=== PATIENT | female | born 1950 | race Caucasian/White ===

== ENCOUNTER 2017-07-23 14:35 | Inpatient (IN) | payer MEDICARE, BC, OTHER ==
[~2017-07-23] VITALS: Ht 160 cm; Wt 83.3 kg
[~2017-07-23 14:35] MED LIST: AKWA TEARS 15 M15 ML OP; AMBIEN 10MG10 MG PO; AMITRIPTYLINE H25 M1 PO; ASPIRIN E.C. 8181 MG PO; ATIVAN1 MG PO; B-12 500 MCG PO; B-12500 MCG PO; BAYER BACK AND BODY; CALCIUM + D 6001 TA1 PO; CELEXA 20MG20 MG/TAB PO; CIMETIDINE400 MG PO; CLONAZEPAM0.5 MG PO; COLACE 100100 MG/CAP PO; CRANBERRY450 MG PO; CYMBALTA 30MG30 MG PO; CYMBALTA 60MG60 MG PO; FLECAINIDE ACE100 MG PO; FLEXERIL 1010 MG/TAB PO; GLUCOSE4 G1 PO; IRON325 M1 PO; LASIX 20MG TABL20 MG PO; LASIX 40MG TABL40 MG PO; LEVOTHYROXIN0.125 MG PO; LEXAPRO 10MG10 MG PO; LORTAB 5/500 501 TAB PO; LOVENOX SQ; LUNESTA2 MG PO; LUNESTA3 MG PO; MULTI VITAMINS1 TAB PO; NEXIUM 40MG40 MG PO; NORCO 325 MG-51 TAB PO; PRILOSEC 20MG20 MG PO; PRISTIQ50 M1 PO; REMERON30 MG PO; REMERON45 MG PO; ROBAXIN 75750 MG/TAB PO; SYNTHROID0.125 MG/T PO; TAGAMET400 MG PO; TEARS OP; TOPROL XL 25MG25 MG; TOPROL XL 50MG50 MG PO; TUMS500 MG PO; TYLENOL 500MG500 MG PO; ULTRAM 50MG TAB50 MG PO; VERAPAMIL HCL120 MG PO; VIACTIV CALCIUM1 CTB PO; VITAMIN C500 MG PO; WARFARIN SOD5 MG PO; XANAX 0.5MG0.5 MG PO; XANAX 1MG1 MG PO; XARELTO20 MG PO; [UNRECOGNIZED DRUG - OTHER] PO
[2017-07-23] MEDS ORDERED: PRIL40 PO (14:54)
[2017-07-23 17:37] VITALS: BP 105/53; PULSE 76; TEMP 98.4
[2017-07-23 17:43] LABS: PROTHROMBIN TIME 11.4 SECONDS (9.7-12.8)
[2017-07-23 17:59] LABS: MEAN CELL VOLUME 105 fl (80.0-100.0); MEAN CORPUSCULAR HGB CONC 33 g/dl (33.0-37.0); MEAN PLATELET VOLUME 10.7 fl (7.4-10.4); PLATELET COUNT 331 K/mm3 (130-400); RED BLOOD COUNT 3.06 M/mm3 (4.10-5.30); WHITE BLOOD COUNT 9.9 K/mm3 (4.8-10.8)
[2017-07-23 18:05] LABS: ADJUSTED CALCIUM 9.3 mg/dL (8.4-10.2); ALBUMIN 3.3 gm/dL (3.5-5.0); BILIRUBIN,TOTAL 0.4 mg/dL (0.0-1.0); CALCIUM 8.7 mg/dL (8.4-10.2); CREATININE, serum 0.69 mg/dL (0.52-1.25); POTASSIUM 3.9 mmol/L (3.4-5.0); TOTAL PROTEIN 6.6 gm/dL (6.4-8.2)
[2017-07-23 18:06] LABS: HEMATOCRIT 32.2 % (37.0-47.0); HEMOGLOBIN 10.5 g/dl (12.5-16.0); MEAN CORPUSCULAR HEMOGLOBIN 34 pg (27.0-31.0)
[2017-07-23 21:20] LABS: PH 5 (5-8); URINE APPEARANCE Cloudy; URINE BACTERIA Rare /hpf; URINE BILIRUBIN Negative (NEGATIVE); URINE BLOOD Negative (NEGATIVE); URINE COLOR Yellow; URINE GLUCOSE Negative (NEGATIVE); URINE KETONE Negative (NEGATIVE); URINE UROBILINOGEN Negative (NEGATIVE)
[2017-07-23 22:27] VITALS: BP 113/63; PULSE 78; TEMP 97.8
[2017-07-24] VITALS (13 sets, daily range): BP systolic 94–148; BP diastolic 49–81; PULSE 73–85; TEMP 98.1–99
[2017-07-25 01:53] VITALS: BP 101/48; PULSE 85; TEMP 98.7
[2017-07-25 06:02] VITALS: BP 126/65; PULSE 80; TEMP 99.4
[2017-07-25 10:52] VITALS: BP 124/62; PULSE 87; TEMP 98.4
[2017-07-25 13:59] VITALS: BP 135/63; PULSE 89; TEMP 98.3
[2017-07-25 17:45] VITALS: BP 115/53; PULSE 87; TEMP 98.9
[2017-07-25 21:43] VITALS: BP 120/78; PULSE 106; TEMP 99.2
[2017-07-26 02:21] VITALS: BP 125/80; PULSE 87; TEMP 98.9
[2017-07-26 05:33] VITALS: BP 135/87; PULSE 85; TEMP 99
[2017-07-26 10:33] VITALS: BP 103/65; PULSE 97; TEMP 98.5
[2017-07-26 13:57] VITALS: BP 116/85; PULSE 101; TEMP 97.9
[2017-07-26 18:33] VITALS: BP 115/66; PULSE 108; TEMP 100.1
[2017-07-26 22:05] VITALS: BP 108/64; PULSE 99; TEMP 98.5
[2017-07-27 02:12] VITALS: BP 105/66; PULSE 81; TEMP 97.5
[2017-07-27 05:13] VITALS: BP 118/75; PULSE 70; TEMP 97.5
[2017-07-27] MEDS ORDERED: NORCO 325 MG-7.1 TAB PO (08:45)
[2017-07-27 11:21] VITALS: BP 103/68; PULSE 85; TEMP 97.6
== END 2017-07-27 13:15 | disposition home or self-care (01) | DRG 482 ==
LOC: COL.ER 14:35 → SURG 15:48
PROVIDERS: Emergency Medicine; Orthopaedic Surgery
PROC: 0QH634Z Insertion of Internal Fixation Device into Right Upper Femur, Percutaneous Approach (ICD-10-PCS; principal; 2017-07-24 08:00)
DX: M84.351A Stress fracture, right femur, initial encounter for fracture (principal); Z87.891 Personal history of nicotine dependence
CPT/HCPCS: OP; C1713; C1776; J0690; J2250; J2270; J2405; J2704; J2765; J3010; J7030; J7120

== ENCOUNTER 2017-12-28 12:09 | Emergency (ER) | payer MEDICARE, BC, OTHER ==
[~2017-12-28] VITALS: Ht 160 cm; Wt 83.2 kg
[~2017-12-28 12:09] MED LIST changes: +NORCO 325 MG-7.1 TAB PO; +PRIL40 PO
[2017-12-28 12:22] VITALS: BP 172/97; TEMP 98.1
[2017-12-28 14:42] VITALS: PULSE 71
== END 2017-12-28 14:43 | disposition home or self-care (01) ==
LOC: COL.ER 12:09
DX: S46.912A Strain of unspecified muscle, fascia and tendon at shoulder and upper arm level, left arm, initial encounter (principal); S46.911A Strain of unspecified muscle, fascia and tendon at shoulder and upper arm level, right arm, initial encounter; I10 Essential (primary) hypertension; I25.10 Atherosclerotic heart disease of native coronary artery without angina pectoris; Z79.82 Long term (current) use of aspirin; W18.39XA Other fall on same level, initial encounter

== ENCOUNTER 2018-02-01 10:01 | Emergency (ER) | payer MEDICARE, BC, OTHER ==
[~2018-02-01] VITALS: Ht 160 cm; Wt 84.5 kg
[2018-02-01 10:16] VITALS: BP 131/85; TEMP 98.1
[2018-02-01] MEDS ORDERED: NEURONTIN300 MG/CAP PO (11:36)
[2018-02-01] MEDS ORDERED: EFFEXOR-XR150 MG PO (11:37)
[2018-02-01] MEDS ORDERED: NORCO 325 MG-51 TAB PO (13:04)
[2018-02-01 13:13] VITALS: PULSE 73
[2018-02-01] MEDS ORDERED: FLEXERIL 1010 MG/TAB PO (13:22)
== END 2018-02-01 13:14 | disposition home or self-care (01) ==
LOC: COL.ER 10:01
DX: S32.020A Wedge compression fracture of second lumbar vertebra, initial encounter for closed fracture (principal); X58.XXXA Exposure to other specified factors, initial encounter
CPT/HCPCS: J2270; J2550

== ENCOUNTER → 2018-04-19 | Outpatient (CLI) | payer MEDICARE, BC, OTHER ==
[~2018-04-19] MED LIST changes: +AMITRIPTYLINE H50 M1 PO; +EFFEXOR-XR150 MG PO; +NEURONTIN300 MG/CAP PO; +RESTASIS 60VL OP
== END ==
LOC: MHCPAIN 14:28
DX: G89.29 Other chronic pain (principal); M47.817 Spondylosis without myelopathy or radiculopathy, lumbosacral region; M54.16 Radiculopathy, lumbar region; M53.3 Sacrococcygeal disorders, not elsewhere classified
CPT/HCPCS: G0463

== ENCOUNTER → 2018-05-05 | Outpatient (CLI) | payer MEDICARE, BC, OTHER | LOC: MHCPAIN 11:51 | DX: M47.817 Spondylosis without myelopathy or radiculopathy, lumbosacral region (principal); M46.96 Unspecified inflammatory spondylopathy, lumbar region | CPT/HCPCS: J1040; Q9967 ==

== ENCOUNTER → 2018-06-03 | Outpatient (CLI) | payer MEDICARE, BC, OTHER | LOC: MHCPAIN 09:54 | DX: G89.29 Other chronic pain (principal); M47.817 Spondylosis without myelopathy or radiculopathy, lumbosacral region; M54.16 Radiculopathy, lumbar region; M53.3 Sacrococcygeal disorders, not elsewhere classified | CPT/HCPCS: G0463 ==

== ENCOUNTER 2019-07-22 12:10 | Emergency (ER) | payer MEDICARE, BC, OTHER ==
[~2019-07-22] VITALS: Ht 157.5 cm; Wt 80.0 kg
[2019-07-22 12:20] VITALS: TEMP 97.2
[2019-07-22 13:34] LABS: BASO # 0.1 (0.0-0.2); BASO % 0.8 % (0.0-2.0); EOS # 0.3 (0.0-0.7); EOS % 2.8 % (0-4.0); GRAN # 6.3 (1.4-6.5); GRAN % 56.4 % (42.2-75.2); HEMOGLOBIN 11.9 g/dl (12.5-16.0); LYMPH # 3.4 (1.2-3.4); LYMPH % 30.7 % (20.0-51.0); MEAN CELL VOLUME 103 fl (80.0-100.0); MEAN CORPUSCULAR HEMOGLOBIN 34 pg (27.0-31.0); MEAN CORPUSCULAR HGB CONC 33 g/dl (33.0-37.0); MEAN PLATELET VOLUME 9.7 fl (7.4-10.4); MONO % 8.9 % (1.7-9.3); PLATELET COUNT 391 K/mm3 (130-400); RED BLOOD COUNT 3.49 M/mm3 (4.10-5.30); REDCELL DISTRIBUTION WIDTH-CV 14.9 % (11.5-14.5)
[2019-07-22 13:39] LABS: INR 1.2 (0.8-3.0); PROTHROMBIN TIME 13.8 SECONDS (9.7-12.8)
[2019-07-22 14:57] VITALS: BP 132/73; PULSE 64
== END 2019-07-22 15:14 | disposition home or self-care (01) ==
LOC: COL.ER 12:10
PROVIDERS: Physician Assistant
DX: S09.90XA Unspecified injury of head, initial encounter (principal); S02.2XXA Fracture of nasal bones, initial encounter for closed fracture; S90.121A Contusion of right lesser toe(s) without damage to nail, initial encounter; R40.2412 Glasgow coma scale score 13-15, at arrival to emergency department; Z86.73 Personal history of transient ischemic attack (TIA), and cerebral infarction without residual deficits; Z90.49 Acquired absence of other specified parts of digestive tract; Z90.89 Acquired absence of other organs; Z98.84 Bariatric surgery status; Z79.01 Long term (current) use of anticoagulants; W01.198A Fall on same level from slipping, tripping and stumbling with subsequent striking against other object, initial encounter; Y92.009 Unspecified place in unspecified non-institutional (private) residence as the place of occurrence of the external cause
CPT/HCPCS: J2405; J7030

== ENCOUNTER 2019-09-22 16:37 | Emergency (ER) | payer MEDICARE, BC, OTHER ==
[~2019-09-22] VITALS: Ht 149.9 cm; Wt 80.0 kg
[2019-09-22 16:40] VITALS: TEMP 97.7
[2019-09-22] MEDS ORDERED: NORCO 325 MG-51 TAB PO (18:24)
[2019-09-22] MEDS ORDERED: LIDODERM 5% PATC1 EA TP (18:24)
[2019-09-22 19:48] VITALS: BP 118/57; PULSE 67
== END 2019-09-22 19:48 | disposition home or self-care (01) ==
LOC: COL.ER 16:37
DX: M54.6 Pain in thoracic spine (principal); Z79.01 Long term (current) use of anticoagulants; Z86.73 Personal history of transient ischemic attack (TIA), and cerebral infarction without residual deficits
CPT/HCPCS: J1170; J1885

== ENCOUNTER → 2019-10-27 | Outpatient (CLI) | payer MEDICARE, BC, OTHER ==
--- NOTE | 2019-10-24 08:18 | NUR ---
LMOM WITH INSTRUCTIONS AND CALL BACK NUMBER
[~2019-10-27] VITALS: Ht 149.9 cm; Wt 79.0 kg
[~2019-10-27] MED LIST changes: +AZULFIDINE500 MG/TAB PO; +ELIQUIS 5MG PO; +LIDODERM 5% PATC1 EA TP; +TOPROL XL 25MG25 MG PO
[2019-10-27 08:50] VITALS: BP 130/98; PULSE 114
[2019-10-27 10:00] VITALS: BP 116/80; PULSE 107
[2019-10-27 10:15] VITALS: BP 112/88; PULSE 106
== END ==
LOC: COL.RAD 08:15
DX: M43.8X4 Other specified deforming dorsopathies, thoracic region (principal); M84.48XA Pathological fracture, other site, initial encounter for fracture
CPT/HCPCS: J2704; J3010

== ENCOUNTER 2020-05-31 09:10 | Inpatient (IN) | payer MEDICARE, BC, OTHER ==
[~2020-05-31] VITALS: Ht 180.3 cm; Wt 77.8 kg
[2020-05-31 10:41] LABS: BASO # 0.1 (0.0-0.2); BASO % 0.8 % (0.0-2.0); EOS # 0.2 (0.0-0.7); EOS % 2.2 % (0-4.0); GRAN # 5.9 (1.4-6.5); GRAN % 57.5 % (42.2-75.2); HEMATOCRIT 34.1 % (37.0-47.0); HEMOGLOBIN 11.3 g/dl (12.5-16.0); LYMPH # 3.2 (1.2-3.4); LYMPH % 30.6 % (20.0-51.0); MEAN CELL VOLUME 102 fl (80.0-100.0); MEAN CORPUSCULAR HEMOGLOBIN 34 pg (27.0-31.0); MEAN CORPUSCULAR HGB CONC 33 g/dl (33.0-37.0); MEAN PLATELET VOLUME 9.5 fl (7.4-10.4); MONO # 0.9 (0.1-0.6); MONO % 8.6 % (1.7-9.3); PLATELET COUNT 344 K/mm3 (130-400); RED BLOOD COUNT 3.33 M/mm3 (4.10-5.30)
[2020-05-31 10:50] LABS: ALBUMIN 3.8 gm/dL (3.5-5.0); BILIRUBIN,TOTAL 0.5 mg/dL (0.0-1.0); CALCIUM 9.3 mg/dL (8.4-10.2); CREATININE, serum 0.66 (0.52-1.25); POTASSIUM 4.9 mmol/L (3.4-5.0); TOTAL PROTEIN 7.5 gm/dL (6.4-8.2)
[2020-05-31] MEDS ORDERED: ELAVIL100 MG PO (10:53)
[2020-05-31] MEDS ORDERED: ZEGERID 40 MG-11 CAP PO (10:54)
[2020-05-31] MEDS ORDERED: CYMBALTA 60MG60 MG PO (10:57)
[2020-05-31] MEDS ORDERED: B-121000 MCG PO (10:57)
[2020-05-31] MEDS ORDERED: VITAMIN D31000 I1 PO (10:58)
--- NOTE | 2020-05-31 11:33 | NUR ---
First visit from the water chemist. No needs right now.
[2020-05-31 11:40] VITALS: BP 145/88; PULSE 80; TEMP 98.6
[2020-05-31] MEDS ORDERED: LIQUIFILM TEARS15 ML OU (11:47)
--- NOTE | 2020-05-31 11:49 | NUR ---
placed pts home meds in med bin in med room and notified pharmacy of their location and to come pick them up
[2020-05-31 11:50] VITALS: BP 145/68; PULSE 80; TEMP 98.6
--- NOTE | 2020-05-31 14:49 | NUR ---
Pt found in room 351 earlier calling patient relations coordinator light to complain about the food given to her for lunch. Upon realizing pt was in wrong room, escorted her back to room 353 where her meal tray was waiting for her. Pt was embarrassed, reassured her it was not a big deal, pt in room 351 was in dialysis at the time so they were not around. Pt resting in bed, denies needs, will continue to monitor.
[2020-05-31 16:36] VITALS: BP 145/73; PULSE 80; TEMP 98.5
[2020-05-31 20:00] VITALS: BP 101/52; PULSE 72; TEMP 97.4
--- NOTE | 2020-05-31 20:15 | NUR ---
At time of assessment, patient is awake in bed. She is alert and oriented and forgetful at times with no complaints of pain. Her legs are obese but do not appear edematous. Heart sounds are normal/regular, lungs are clear with fine crackles in bilateral bases. Patient ambulates independently in her room and states she has vomited up some of her dinner. She states this is a common occurrence when she eats too much, which started after her gastric bypass surgery. Will continue to monitor.
[2020-06-01] VITALS: BP 105/61; PULSE 69; TEMP 97.8
[2020-06-01 03:22] VITALS: BP 122/72; PULSE 69; TEMP 97.5
--- NOTE | 2020-06-01 06:25 | NUR ---
Patient has had a restful night and has been on her home CPAP throughout the night. She complained of pain 6/10 this morning in her ribs and 50 mg Ultram was administered for this. No new concerns.
[2020-06-01 06:34] LABS: PROTHROMBIN TIME 11.6 SECONDS (9.7-12.8)
[2020-06-01 07:38] VITALS: BP 112/50; PULSE 67; TEMP 98.2
--- NOTE | 2020-06-01 09:00 | NUR ---
Patient sitting up in bed watching TV. Rating pain 12/01. VSS. IV CDI. HR NSR telemetry on chest. No further needs expressed from patient. Patient wants to take a shower, nursing staff assisting patient. Call light within reach
--- NOTE | 2020-06-01 11:06 | NUR ---
Plan: To return home with her son and his family in [facility]. Son is Yuriy Fregoso . Assessment: SW met with patient about DC plan. Patient reports that she resides with her son and his family. Patient reports that she has a CPAP and uses it nightly. Patient reports that she has a heart monitor and walker. Patient reports that her PCP is Dr. Allen with upcoming appointment on June 13. Patient reports that she uses [facility]. Patient reports that she has a DPOA but needs to change it and does not want the one she has on record. Denies the need or use of home health. Action: SW educated patient on services available in the community. No additional needs identified.
[2020-06-01 11:20] VITALS: BP 114/63; PULSE 61; TEMP 98.3
[2020-06-01 15:18] VITALS: BP 115/61; PULSE 73; TEMP 98.3
--- NOTE | 2020-06-01 17:33 | NUR ---
Patient has had an uneventful day. VSS. Telemetry on chest. IV CDI. Has been walking the hallway with quad cane, getting lost, but nursing staff assisting patient back to room. No further needs expressed from patient. Call light within reach
[2020-06-01 19:37] VITALS: BP 112/72; PULSE 72; TEMP 98.1
--- NOTE | 2020-06-01 20:00 | NUR ---
At time of assessment, patient is sitting in bed watching TV. She is alert and oriented, heart sounds normal/regular, lung sounds clear, no edema. She complains of mild pain in her ribs. Will continue to monitor.
[2020-06-02] VITALS (7 sets, daily range): BP systolic 96–144; BP diastolic 46–91; PULSE 59–71; TEMP 97.5–98.2
[2020-06-02 07:34] LABS: PROTHROMBIN TIME 11.1 SECONDS (9.7-12.8)
--- NOTE | 2020-06-02 08:15 | NUR ---
Patient laying in bed. A&Ox3. Denies pain and discomfort. VSS. IV CDI. No further needs expressed from patient. Nurse reminded patient to wear a mask when walking the hallway and that she is in 353. Call light within reach
--- NOTE | 2020-06-02 17:42 | NUR ---
Patient resting in bed. Has been walking the hallway independently and tolerating well. VSS. Telemetry on chest. IV CDI. Patient is hoping to go home tomorrow. No further needs expressed from patient. Call light within reach
[2020-06-03] VITALS (9 sets, daily range): BP systolic 84–901; BP diastolic 45–87; PULSE 60–72; TEMP 97.3–98
--- NOTE | 2020-06-03 00:47 | NUR ---
Patient ambulated the halls at the beginning of the shift. Gait noted to be uneven, but steady. INT noted to left hand. Flushes with ease. Noted to be forgetful at times, but is easily reoriented when this happens. Continues to be in normal sinus on telemetry. Patient wears CPAP at night. Denies any further needs. Will continue to monitor.
--- NOTE | 2020-06-03 08:00 | NUR ---
BROUGHT IN ORANGE JUICE PER PT REQUEST, PT PLEASANT, AOX4, ASSESSMENT PERFORMED, MEDICATIONS GIVEN. NO OTHER NEEDS AT THIS TIME. BED IN LOW POSITION, CALL LIGHT WITHIN REACH.
--- NOTE | 2020-06-03 08:40 | NUR ---
PT WALKING IN [place]A REQUESTING TRAMADOL FOR BACK PAIN. PT THEN BEGAN STUMBLING IN THE [place]QU[place], ESCORTED BACK TO BED. PLACED ON HIGH FALL RISK, PT REPORTED DIZZINESS. BP TAKEN AND PT BP SYSTOLIC IN THE 80'S/90'S. CHELO LAINEZ AND DR. PATEL NOTIFIED. FLUID BOLUS ORDERED, FLUIDS HOOKED UP AND BOLUS GIVEN, TAKING VITALS Q5MIN. PT INSTRUCTED TO USE CALL LIGHT WHEN NEEDING TO GET UP AND BED ALARM SET. WILL CONTINUE TO MONITOR.
--- NOTE | 2020-06-03 14:00 | NUR ---
aydin Gardner, CHELO to see about amiodarone administration. she consulted with Malik and it was decided that the amio dose would be given. bp rechecked before administration and it was 107/76. no other needs at this time.
[2020-06-03 14:28] LABS: PROTHROMBIN TIME 11.2 SECONDS (9.7-12.8)
--- NOTE | 2020-06-03 17:14 | NUR ---
pt bp back to baseline that it was at in morning before hypotensive episode. pt complained of back pain and recieved one tramadol. has not asked for another since. pt been sleeping for most of shift, reported being very tired. cardiology approved 1400 dose of amiodarone. no other needs at this time.
--- NOTE | 2020-06-03 19:30 | NUR ---
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 Assessment complete. VS stable-still hypotensive at 92/55-holding metoprolol. A&Ox3-confused conversation. Very tearful stating she is depressed and doesnt want to be away from her family any more and is ready to go home. Plan of care discussed for HS meds/monitoring BP. Discussed need for adjustments to new meds on occasion-verbalizes understanding but still upset she couldnt go home. Denies pain/shortness of breath/nausea. States she is ready to go to bed and requesting HS meds. Denies current needs. Call light inr each. Will monitor.
[2020-06-04 00:03] VITALS: BP 127/72; PULSE 62; TEMP 98
[2020-06-04 04:05] VITALS: BP 116/63; PULSE 69; TEMP 97.5
--- NOTE | 2020-06-04 07:15 | NUR ---
CHELO KNIGHT REPORTED LOW BP LAST NIGHT AND HELD METOPROLOL AND XANAX. NEED TO ADJUST MEDICATIONS.
[2020-06-04 07:42] VITALS: BP 118/71; PULSE 67; TEMP 98
--- NOTE | 2020-06-04 08:00 | NUR ---
PT IN BED, REPORTING PAIN IN LOW BACK. PT ALERT AND ORIENTED BUT SOMETIMES CONFUSED DURING CONVERSATION. PT GIVEN TYLENOL SINCE TRAMADOL WAS NOT AVAILABLE YET TO GIVE. ASSESSMENT PERFORMED, MEDICATIONS GIVEN, BED LOW POSITION, BED ALARM ON. PT DROPPED COFFEE ON HERSELF, PT SUSTAINED NO INJURIES, PT REPORTED FEELING NAUSOUS AND SPIT UP. PT SAYS THIS HAPPENS WHEN SHE EATS TOO MUCH BUT SHE DID NOT EAT VERY MUCH. SHEETS CHANGED, BED BATH PERFORMED, PT REPORTS FEELING BETTER AFTER SPITTING UP. NO OTHER NEEDS AT THIS TIME.
[2020-06-04 08:04] LABS: BASO # 0.1 (0.0-0.2); BASO % 0.8 % (0.0-2.0); EOS # 0.4 (0.0-0.7); EOS % 3.5 % (0-4.0); GRAN # 5.2 (1.4-6.5); GRAN % 49.9 % (42.2-75.2); LYMPH # 3.8 (1.2-3.4); MEAN CELL VOLUME 102 fl (80.0-100.0); MEAN CORPUSCULAR HEMOGLOBIN 33 pg (27.0-31.0); MEAN CORPUSCULAR HGB CONC 33 g/dl (33.0-37.0); MEAN PLATELET VOLUME 9.8 fl (7.4-10.4); MONO # 0.9 (0.1-0.6); MONO % 8.4 % (1.7-9.3); PLATELET COUNT 362 K/mm3 (130-400); RED BLOOD COUNT 3.59 M/mm3 (4.10-5.30); REDCELL DISTRIBUTION WIDTH-CV 15.1 % (11.5-14.5)
[2020-06-04 08:05] LABS: HEMATOCRIT 36.7 % (37.0-47.0)
[2020-06-04 08:07] LABS: CALCIUM 8.9 mg/dL (8.4-10.2); CREATININE, serum 0.84 (0.52-1.25); POTASSIUM 5.2 mmol/L (3.4-5.0)
[2020-06-04 08:35] LABS: PROTHROMBIN TIME 11.1 SECONDS (9.7-12.8)
--- NOTE | 2020-06-04 11:43 | NUR ---
PT AMBULATED 200 YARDS. PT STUMBLED OVER CANE WHEN WALKING X1. PT SPIT UP AGAIN. ACCORDING TO HISTORY OF GASTRIC BYPASS THIS HAS BEEN SOMETHING THAT HAS BEEN OCCURING FOR AWHILE.
[2020-06-04 11:47] VITALS: BP 110/67; PULSE 77; TEMP 98
--- NOTE | 2020-06-04 11:54 | NUR ---
DAVID met with the patient to follow up and review discharge plan. The patient states that she is fine and ready to get back home. The patient plans to return back her with her son and grandchildren. She states that she has no concerns about returning home. No additional needs at this time.
[2020-06-04] MEDS ORDERED: CORDARONE200 MG/TAB PO (12:56)
--- NOTE | 2020-06-04 13:35 | NUR ---
The patient is to discharge back home with her son today, 06/04. SW presented and read the IM form outloud to the patient. The patient verbalized understanding and gave SW approval to sign the form on her behalf. SW provided her with a copy. No additional needs at this time.
--- NOTE | 2020-06-04 14:32 | NUR ---
PT LEFT VIA WHEELCHAIR WITH BELONINGS. IV DISCONTINUED, DISCHARGE EDUCATION PROVIDED. TELE DETACHED.
== END 2020-06-04 14:33 | disposition home or self-care (01) | DRG 310 ==
LOC: EUO 09:10 → MEDICAL 09:11
PROVIDERS: ADMIT Internal Medicine Cardiovascular Disease
DX: I48.0 Paroxysmal atrial fibrillation (principal); I95.9 Hypotension, unspecified
CPT/HCPCS: J7040

== ENCOUNTER → 2020-10-30 | Outpatient (CLI) | payer MEDICARE, BC, OTHER ==
[~2020-10-30] MED LIST changes: +B-121000 MCG PO; +CORDARONE200 MG/TAB PO; +ELAVIL100 MG PO; +LIQUIFILM TEARS15 ML OU; +VITAMIN D31000 I1 PO; +ZEGERID 40 MG-11 CAP PO
== END ==
LOC: MC.RAD 13:00
DX: R59.0 Localized enlarged lymph nodes (principal)

== ENCOUNTER → 2022-04-06 | Outpatient (CLI) | payer MEDICARE, BC, OTHER ==
[2022-04-06 16:50] LABS: COLLECTION METHOD CATHETER
[2022-04-06 17:13] LABS: PH 5 (5-8); SQUAMOUS EPITHELIAL 0-2 /hpf (0-10); URINE APPEARANCE Cloudy (CLEAR/HAZY); URINE BACTERIA Rare /hpf (NONE SEEN); URINE BILIRUBIN Negative (NEGATIVE); URINE BLOOD Negative (NEGATIVE); URINE COLOR Yellow (YELLOW); URINE GLUCOSE Negative (NEGATIVE); URINE KETONE Negative (NEGATIVE); URINE LEUKOCYTE ESTERASE 2+ (NEGATIVE); URINE NITRATE Negative (NEGATIVE); URINE PROTEIN(semi-quant) Negative (NEGATIVE); URINE WBC >50 /hpf (0-2)
== END ==
LOC: ZCOL.LAB 15:21
PROVIDERS: Internal Medicine
DX: N39.0 Urinary tract infection, site not specified (principal)

== ENCOUNTER → 2022-04-23 | Outpatient (CLI) | payer MEDICARE, BC, OTHER ==
[2022-04-23 12:39] LABS: COLLECTION METHOD CATHETER
[2022-04-23 12:40] LABS: MUCOUS Present (NOT PRESENT); PH 6 (5-8); URINE APPEARANCE Turbid (CLEAR/HAZY); URINE BACTERIA Moderate /hpf (NONE SEEN); URINE BILIRUBIN Negative (NEGATIVE); URINE BLOOD Negative (NEGATIVE); URINE COLOR Amber (YELLOW); URINE GLUCOSE Negative (NEGATIVE); URINE KETONE Negative (NEGATIVE); URINE LEUKOCYTE ESTERASE 3+ (NEGATIVE); URINE NITRATE Positive (NEGATIVE); URINE PROTEIN(semi-quant) 1+ (NEGATIVE); URINE WBC >50 /hpf (0-2)
== END ==
LOC: ZCOL.LAB 12:11
PROVIDERS: Internal Medicine
DX: N39.0 Urinary tract infection, site not specified (principal)

== ENCOUNTER 2022-05-28 13:28 | Emergency (ER) | payer MEDICARE, BC, OTHER ==
[~2022-05-28] VITALS: Ht 149.9 cm; Wt 61.8 kg
[2022-05-28 13:33] VITALS: TEMP 98.7
[2022-05-28 15:13] VITALS: BP 110/74; PULSE 92
== END 2022-05-28 15:23 | disposition home or self-care (01) ==
LOC: COL.ER 13:28
DX: S76.011A Strain of muscle, fascia and tendon of right hip, initial encounter (principal); X50.1XXA Overexertion from prolonged static or awkward postures, initial encounter
CPT/HCPCS: J2270; J2550

== ENCOUNTER 2022-06-11 19:41 | Emergency (ER) | payer MEDICARE, BC, OTHER ==
[~2022-06-11] VITALS: Ht 149.9 cm; Wt 61.8 kg
[2022-06-11 19:43] VITALS: TEMP 97.7
[2022-06-11 20:10] LABS: BASO # 0.1 K/mm3 (0.0-0.2); EOS # 0.3 K/mm3 (0.0-0.7); EOS % 3.1 % (0.0-4.0); GRAN # 4.5 K/mm3 (1.4-6.5); GRAN % 48.9 % (42.2-75.2); HEMOGLOBIN 10.9 g/dl (12.5-16.0); LYMPH # 3.3 K/mm3 (1.2-3.4); LYMPH % 35.8 % (20.0-51.0); MEAN CELL VOLUME 103 fl (80.0-100.0); MEAN CORPUSCULAR HEMOGLOBIN 34 pg (27-31); MEAN CORPUSCULAR HGB CONC 33 g/dl (33.0-37.0); MEAN PLATELET VOLUME 9.3 fl (7.4-10.4); MONO % 10.9 % (1.7-9.3); PLATELET COUNT 426 K/mm3 (130-400); RED BLOOD COUNT 3.17 M/mm3 (4.10-5.30); REDCELL DISTRIBUTION WIDTH-CV 14.9 % (11.5-14.5)
[2022-06-11 20:14] LABS: HEMATOCRIT 32.7 % (37.0-47.0)
[2022-06-11 20:30] LABS: ALANINE AMINOTRANSFERASE 13 U/L (0-55); ALBUMIN 2.8 gm/dL (3.4-4.8); ALKALINE PHOSPHATASE 135 U/L (40-150); ANION GAP 11 mmol/L (7-16); AST,SGOT 17 U/L (5-34); BILIRUBIN,TOTAL 0.4 mg/dL (0.2-1.2); BLOOD UREA NITROGEN 9 mg/dL (10-20); CALCIUM 8.2 mg/dL (8.4-10.2); CARBON DIOXIDE 20 mmol/L (23-31); CHLORIDE 110 mmol/L (98-107); CREATINE KINASE 22 U/L (29-168); CREATININE, serum 0.62 mg/dL (0.57-1.11); GLUCOSE 72 mg/dL (70-99); POTASSIUM 4.4 mmol/L (3.5-4.5); SODIUM 141 mmol/L (136-145)
[2022-06-11 20:38] LABS: COLLECTION METHOD CLEAN CATCH
[2022-06-11 20:40] LABS: TROPONIN-I < 0.010 ng/mL (0.00-0.033)
[2022-06-11 20:46] LABS: PH 5 (5-8); SQUAMOUS EPITHELIAL None Seen /hpf (0-10); URINE APPEARANCE Clear (CLEAR/HAZY); URINE BACTERIA None Seen /hpf (NONE SEEN); URINE BLOOD Negative (NEGATIVE); URINE COLOR Yellow (YELLOW); URINE GLUCOSE Negative (NEGATIVE); URINE KETONE Negative (NEGATIVE); URINE NITRATE Negative (NEGATIVE); URINE PROTEIN(semi-quant) Negative (NEGATIVE); URINE RBC None Seen /hpf (0-2); URINE UROBILINOGEN Negative (NEGATIVE)
[2022-06-11 21:29] VITALS: BP 111/69; PULSE 68
== END 2022-06-11 21:33 | disposition home or self-care (01) ==
LOC: COL.ER 19:41
PROVIDERS: Emergency Medicine
DX: D64.9 Anemia, unspecified (principal); R53.1 Weakness; R03.0 Elevated blood-pressure reading, without diagnosis of hypertension
CPT/HCPCS: J3010; J7030